=== PATIENT | male | born 2000 | race Two or more races ===

== ENCOUNTER 2025-07-25 13:22 | Emergency (ER) | payer OTHER ==
[~2025-07-25] VITALS: Ht 165.1 cm; Wt 65.3 kg
[2025-07-25 13:28] VITALS: TEMP 98.2
[2025-07-25] MEDS ORDERED: GNP650TA8 PO (14:05)
[2025-07-25 17:08] VITALS: BP 138/84; O2SAT 98
== END 2025-07-25 17:10 | disposition home or self-care (01) ==
LOC: M ED 13:22
DX: S93.602A Unspecified sprain of left foot, initial encounter (principal); Y92.9 Unspecified place or not applicable; Y93.02 Activity, running; Y99.9 Unspecified external cause status; Z91.018 Allergy to other foods; Z79.1 Long term (current) use of non-steroidal anti-inflammatories (NSAID)